=== PATIENT | female | born 1960 | race Caucasian/White ===

== ENCOUNTER → 2021-01-26 | Outpatient (CLI) | payer OTHER ==
[~2021-01-26] VITALS: Ht 152.4 cm; Wt 62.6 kg
== END ==
LOC: OPSV 14:00
DX: N39.0 Urinary tract infection, site not specified (principal)
CPT/HCPCS: 96372; J1335

== ENCOUNTER → 2021-01-27 | Outpatient (CLI) | payer OTHER ==
[~2021-01-27] VITALS: Ht 152.4 cm; Wt 62.6 kg
== END ==
LOC: OPSV 13:22
DX: N39.0 Urinary tract infection, site not specified (principal); Z88.9 Allergy status to unspecified drugs, medicaments and biological substances
CPT/HCPCS: 96372; J1335

== ENCOUNTER → 2021-01-28 | Outpatient (CLI) | payer OTHER ==
[~2021-01-28] VITALS: Ht 152.4 cm; Wt 62.6 kg
== END ==
LOC: OPSV 13:19
DX: N39.0 Urinary tract infection, site not specified (principal)
CPT/HCPCS: 96372; J1335

== ENCOUNTER → 2021-01-29 | Outpatient (CLI) | payer OTHER | LOC: OPSV 08:00 → EROP 12:57 | DX: N39.0 Urinary tract infection, site not specified (principal) | CPT/HCPCS: 96372; J1335 ==

== ENCOUNTER → 2021-01-30 | Outpatient (CLI) | payer OTHER | LOC: OPSV 08:00 | DX: N39.0 Urinary tract infection, site not specified (principal) | CPT/HCPCS: 96372; J1335 ==

== ENCOUNTER → 2021-01-31 | Outpatient (CLI) | payer OTHER | LOC: OPSV 13:29 | DX: N39.0 Urinary tract infection, site not specified (principal) | CPT/HCPCS: G0463 ==

== ENCOUNTER → 2021-04-08 | Day surgery (SDC) | payer OTHER ==
[~2021-04-08] MED LIST: ALLERGY RELIEF5 MG PO; AMLODIPINE-BEN1 EAC4 PO; ARTHRITIS PAIN100 GM TP; AZELASTINE137 MCG/0.; B12 ACTIVE1000 MCG PO; CYCLOBENZAPRINE10 MG PO; DITROPAN XL5 MG PO; FLONASE 0.05% N16 GM; HYDROCODON-ACE1 EAC6 PO; ISOSORBIDE MONO60 MG PO; LEVOTHYROXINE25 MC1 PO; LOPRESSOR 25 MG25 MG PO; MELATONIN10 M2 PO; NEURONTIN300 MG PO; NITROGLYCERIN0.4 MG SL; PRAVASTATIN SOD40 MG PO; PREVACID30 MG PO; PROVENTIL HFA6.7 GM INH; SINGULAIR10 MG PO; TOPIRAMATE50 MG PO; TYLENOL EXTRA500 MG PO
== END | disposition home or self-care (01) ==
LOC: OR 06:12
DX: Z12.11 Encounter for screening for malignant neoplasm of colon (principal); Z86.010 Personal history of colon polyps; I10 Essential (primary) hypertension; E78.5 Hyperlipidemia, unspecified; J45.909 Unspecified asthma, uncomplicated; K21.9 Gastro-esophageal reflux disease without esophagitis; E03.9 Hypothyroidism, unspecified; G89.29 Other chronic pain; M25.569 Pain in unspecified knee; M15.9 Polyosteoarthritis, unspecified; F41.9 Anxiety disorder, unspecified; Z90.49 Acquired absence of other specified parts of digestive tract; Z90.710 Acquired absence of both cervix and uterus; Z88.0 Allergy status to penicillin; Z88.1 Allergy status to other antibiotic agents; Z88.2 Allergy status to sulfonamides; Z88.8 Allergy status to other drugs, medicaments and biological substances; Z79.1 Long term (current) use of non-steroidal anti-inflammatories (NSAID); Z79.891 Long term (current) use of opiate analgesic; Z79.899 Other long term (current) drug therapy
CPT/HCPCS: J2704; J7030

== ENCOUNTER → 2021-04-12 | Outpatient (CLI) | payer OTHER | LOC: MAMO 09:20 | DX: Z12.31 Encounter for screening mammogram for malignant neoplasm of breast (principal) | CPT/HCPCS: 77063; 77067 ==

== ENCOUNTER → 2021-06-07 | Outpatient (CLI) | payer OTHER | LOC: LBRF 15:51 | DX: R30.0 Dysuria (principal) | CPT/HCPCS: 87086 ==

== ENCOUNTER → 2021-11-17 | Outpatient (CLI) | payer MEDICARE | LOC: RAD 16:29 | DX: M25.512 Pain in left shoulder (principal); M54.2 Cervicalgia; M47.812 Spondylosis without myelopathy or radiculopathy, cervical region | CPT/HCPCS: 72040; 73030 ==

== ENCOUNTER → 2022-01-05 | Outpatient (CLI) | payer MEDICARE | LOC: KOH-I 12:45 | DX: S09.90XA Unspecified injury of head, initial encounter (principal); R51.9 Headache, unspecified; Z91.81 History of falling | CPT/HCPCS: 70450 ==